=== PATIENT | female | born 1995 ===

== ENCOUNTER 2020-02-12 14:05 | Emergency (ER) | payer OTHER ==
--- NOTE | 2020-02-12 14:47 | RAD ---
PORTABLE CHEST: 02/12/20 HISTORY: Positive COVID. Cough. Lungs appear well aerated. I cannot exclude ground glass infiltrate in the left lung base given histo ry of positive COVID test. There is no confluent consolidation. Heart size is normal. IMPRESSION: Question ground glass infiltrate in the left lung base. POS: AGW
--- NOTE | 2020-02-13 10:34 | EKG ---
Test Reason : Blood Pressure : / mmHG Vent. Rate : 108 BPM Atrial Rate : 108 BPM P-R Int : 138 ms QRS Dur : 082 ms QT Int : 320 ms P-R-T Axes : 062 072 049 degrees QTc Int : 428 ms Sinus tachycardia Otherwise normal ECG Confirmed by CATHRYN PERKINS DO ([id number]), editorial cartoonist TODD CHENG ([id number]) on 02/13/2020 10:34:42 AM Referred By: Confirmed By:CATHRYN PERKINS DO
== END 2020-02-12 15:20 | disposition home or self-care (01) ==
LOC: ERS 14:05
DX: U07.1 COVID-19 (principal); J12.89 Other viral pneumonia; R42 Dizziness and giddiness
CPT/HCPCS: 71045; 87635; 93005; U0003